=== PATIENT | female | born 1995 | race African-American/Black ===

== ENCOUNTER 2020-04-02 12:31 | Emergency (ER) | payer MEDICAID ==
[~2020-04-02] VITALS: Ht 172.7 cm; Wt 95.3 kg
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
--- NOTE | 2020-04-02 13:36 | NUR ---
pt refused blood draw, pt calm and states she isn't SI/HI. pt has been saying thank you and asking for food politely. Informed JORGE, she is trying to get ahold of the psychiatrist to lift the hold on her. Addendum: 04/02/20 at 1438 by DONNIE Amendment undone in EDM - 04/02/20 at 1517 by DONNIE JORGE stated okay not to get labs Addendum: 04/02/20 at 1517 by DONNIE JORGE Parker stated okay not to get labs
[2020-04-02 13:41] VITALS: BP 118/76
--- NOTE | 2020-04-02 14:21 | NUR ---
pt is resting with eyes closed in no noted distress. will continue to monitor.
--- NOTE | 2020-04-02 15:01 | NUR ---
pt is resting with eyes closed in no noted distress
--- NOTE | 2020-04-02 15:51 | NUR ---
pt resting with eyes closed in no noted distress
--- NOTE | 2020-04-02 16:22 | NUR ---
pt a/o x4, states she feels better and would like to go home. pt was asked if she would speak with the psychiatrist and she stated yes
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
--- NOTE | 2020-04-02 17:19 | NUR ---
pt received dinner tray
--- NOTE | 2020-04-02 18:52 | NUR ---
pt is resting with eyes closed in no noted distress
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
--- NOTE | 2020-04-02 19:30 | NUR ---
ED Nurse Note: Spoke to Dr. Ledezma at [phone]. Pt would be seen and cleared jenny am
--- NOTE | 2020-04-02 20:00 | NUR ---
ED Nurse Note: noted that no labs werre done on pt, informed MD, was told pt refused and its ok because she will probally be released in am, pt is on 5150 hold by [address] and is not cooperative at this time, informed MD also, pt in room in bed, but constantly states "no i dont like needles and you are not going to draw my blood so get out of here", informed of pt actual statement, charge nurse roque is aware also, all parties state its ok and just leave pt alone.
--- NOTE | 2020-04-03 00:30 | NUR ---
ED Nurse Note: Pt awakened and ambulated to bathroom, asked to collect urine sample and given urine cup, pt refused and states she forgot to collect, pt is hostile towards staff and constantly states to leave her alone, remains aware, pt to see psychiatrist in am, will continue to closely monitor, no attempts to leave made.
--- NOTE | 2020-04-03 04:00 | NUR ---
ED Nurse Note: Pt awakened and ambulated to bathroom, refuses to give urine sample, when attempting to ask questions pt is non-cooperative, still wont commit to blood work, asked MD if needed to restrain for labs, states to wait for pt to be seen by psychiatrist first, pt goes back to room, no changes or attempts of any kind made.
--- NOTE | 2020-04-03 06:35 | NUR ---
ED Nurse Note: Attempted to speak with pt again, remains hostile towards staff and un-cooperative, continues to refuse lab draw, aware, will continue to wait for am psych consult for further instuructions, no changes or distress noted, pt constantly ask to close door and get out of room. refuses breakfast tray, juice or food at this time when breakfast offered.
--- NOTE | 2020-04-03 07:10 | NUR ---
ED Nurse Note: RN walked in to the room and introduced to start assessment. pt yelled "No stop coming in and out!! i am tired. i need to sleep!!" no distress noted and no violent physical action occured. will assess when pt is more awake.
--- NOTE | 2020-04-03 09:00 | NUR ---
went to speak to the patient to let her know her mother is on the phone asking about her and i told her that she is here . mother states she wasts to be notified where cver she get transferd . patient started screeming stated ia am an adult . so please get the hell out of the rpoom then started throwing her bed linen across the room. unable to go close to the patient need labworks to be done for psych placement has been notified
[2020-04-03 09:13] VITALS: BP 122/76
--- NOTE | 2020-04-03 09:30 | NUR ---
ED Nurse Note: Patient noted to be screaming and yelling and banging herself on the wall. ERMD and charge nurse aware.
[2020-04-03] MEDS ORDERED: LORazepam Inj 2mg/ml 1ml IM ONE (09:45)
[2020-04-03] MEDS ORDERED: Haloperidol 5mg/ml Inj IM ONE (09:45)
--- NOTE | 2020-04-03 12:10 | NUR ---
ED Nurse Note: Collected blood and urine then sent.
--- NOTE | 2020-04-03 12:33 | NUR ---
ED Nurse Note: RN unable to swab patient for covid antigen due to refusal.
[2020-04-03 12:35] LABS: APPEARANCE,URINE CLEAR; BILIRUBIN, URINE NEGATIVE (NEGATIVE); COLOR,URINE PALE YELLOW; GLUCOSE, URINE (UA) NEGATIVE (NEGATIVE); KETONES,URINE NEGATIVE (NEGATIVE); LEUKOCYTE ESTERASE ,URINE NEGATIVE (NEGATIVE); NITRITE,URINE NEGATIVE (NEGATIVE); PH,URINE 7 (4.5-8.0); PROTEIN,URINE NEGATIVE (NEGATIVE); UROBILINOGEN,URINE NORMAL MG/DL (0.0-1.0)
[2020-04-03 12:36] LABS: BASOPHILS % (AUTO) 1.5 % (0.0-2.0); EOSINOPHILS % (AUTO) 2.6 % (0.0-3.0); HEMOGLOBIN 12.9 G/DL (12.0-16.0); LYMPHOCYTES % (AUTO) 52.9 % (20.0-45.0); MEAN CORPUSCULAR VOLUME 84 FL (80-99); MONOCYTES % (AUTO) 10.7 % (1.0-10.0); NEUTROPHILS % (AUTO) 32.4 % (45.0-75.0); PLATELET COUNT 307 K/UL (150-450); RED BLOOD COUNT 4.74 M/UL (4.20-5.40); RED CELL DISTRIBUTION WIDTH 13.6 % (11.6-14.8)
[2020-04-03 12:42] LABS: ANION GAP 7 mmol/L (5-15); BLOOD UREA NITROGEN 12 mg/dL (7-18); CALCIUM 9.3 MG/DL (8.5-10.1); CARBON DIOXIDE 28 MMOL/L (21-32); CHLORIDE 102 MMOL/L (98-107); POTASSIUM 4.3 MMOL/L (3.5-5.1); SODIUM 137 MMOL/L (136-145)
[2020-04-03 12:48] LABS: ALANINE AMINOTRANSFERASE 17 U/L (12-78); ALBUMIN 3.3 G/DL (3.4-5.0); ALBUMIN/GLOBULIN RATIO 0.6 (1.0-2.7); ALKALINE PHOSPHATASE 70 U/L (46-116); ASPARTATE AMINO TRANSFERASE 16 U/L (15-37); BILIRUBIN,TOTAL < 0.1 MG/DL (0.2-1.0)
--- NOTE | 2020-04-03 12:48 | NUR ---
ED Nurse Note: Covid19 antigen swab sent.
--- NOTE | 2020-04-03 14:15 | NUR ---
clinicals faxed to [facility] . spoke to meeta tellez call back after they review the chart
--- NOTE | 2020-04-03 16:28 | NUR ---
PATIENT HAS BEEN ACCEPTED AT [facility] . REPORT TO BE GIVEN TO THE NURSE AT [address] [facility] [id number]
[2020-04-03 19:35] VITALS: BP 120/61
--- NOTE | 2020-04-03 19:35 | NUR ---
ED Nurse Note: Pt is sleeping, responds to verbal command. No new needs identified at this time.
--- NOTE | 2020-04-03 21:20 | NUR ---
ED Nurse Note: Pt cleared by health care Provider for transfer. Report given to EMS personnel. Pt is AAO x4 and left with all personal belongings.
[2020-04-03 21:47] VITALS: BP 120/61
== END 2020-04-03 21:20 ==
LOC: EDBD 12:31 → EMR 14:56
DX: R46.89 Other symptoms and signs involving appearance and behavior (principal)
CPT/HCPCS: 36415; 80053; 80307; 81003; 83735; 84703; 85025; 96372; G0480; G0481; J1630; Z7502; 99284